=== PATIENT | female | born 1990 | race Caucasian/White ===

== ENCOUNTER 2016-08-06 22:11 | Emergency (ER) | payer MEDICAID, OTHER ==
[~2016-08-06] VITALS: Ht 162.6 cm; Wt 102.1 kg
[2016-08-06 22:23] VITALS: BP 106/62
[2016-08-06 23:03] LABS: APPEARANCE,URINE SL CLOUDY (CLEAR); BILIRUBIN,URINE NEGATIVE (NEGATIVE); BLOOD, URINE TRACE-I (NEGATIVE); COLOR,URINE YELLOW (YELLOW); LEUKOCYTE ESTERASE ,URINE TRACE (NEGATIVE); NITRITE, URINE NEGATIVE (NEGATIVE); PH,URINE 5.5 (5.0-9.0); PROTEIN,URINE NEGATIVE (NEGATIVE); UGLUCOSE NEGATIVE (NEGATIVE); UROBILINOGEN,URINE 0.2 EU/dL (0.2 - 1)
[2016-08-06 23:20] LABS: BACTERIA,URINE FEW /HPF (None Seen)
--- NOTE | 2016-08-07 01:48 | NUR ---
PT TAKEN TO BED 6
--- NOTE | 2016-08-07 01:50 | NUR ---
ON AND OFF LOWER ABD PAIN, SINCE SATURDAY, ERMD AWARE.
--- NOTE | 2016-08-07 01:52 | NUR ---
Dr. Crowell evaluating patient at bedside.
[2016-08-07] MEDS ORDERED: HYDROcodone/APAP 5/325 MG 1 TAB TAB PO ONE (02:05)
--- NOTE | 2016-08-07 02:55 | NUR ---
PT RETURN FROM ULTRASOUND
[2016-08-07 04:56] VITALS: BP 115/75
--- NOTE | 2016-08-07 04:56 | NUR ---
Patient discharged with v/s stable. Written and verbal after care instructions given and explained. Patient alert, oriented and verbalized understanding of instructions. Ambulatory with steady gait. All questions addressed prior to discharge. ID band removed. Patient advised to follow up with PMD. Rx of MOTRIN 600MG 1 TAB 4 TIMES A DAY BY MOUTH NEEDED FOR PAIN /FEVER, KEFLEX 500MG 1 CAP 2 TIMES A DAY BY MOUTH X 7 DAYS given. Patient educated on indication of medication including possible reaction and side effects. Opportunity to ask questions provided and answered.
== END 2016-08-07 04:56 | disposition home or self-care (01) ==
LOC: MED 22:11
DX: N30.90 Cystitis, unspecified without hematuria (principal)
CPT/HCPCS: 76830; 76856; 81001; 81025; 99285